=== PATIENT | male | born 1965 | race Caucasian/White ===

== ENCOUNTER 2018-12-16 17:18 | Emergency (ER) | payer SELFPAY ==
[2018-12-16 17:23] VITALS: BP 106/64; PULSE 77; TEMP 97.9; BMI 29.9
--- NOTE | 2018-12-16 18:43 | PDOC ---
History of Present Illness - General Chief Complaint: Ear Problem Stated Complaint: EAR CLOGGED Time Seen by Provider: 12/16/18 17:33 History Source: Patient Exam Limitations: No Limitations Past History - Past Medical History Allergies/Adverse Reactions: Allergies Allergy/AdvReac Type Severity Reaction Status Date / Time No Known Allergies Allergy Verified 12/16/18 17:23 COPD: No - Suicide/Smoking/Psychosocial Hx Smoking History: Never smoked *Physical Exam - Vital Signs Last Vital Signs Temp Pulse Resp BP Pulse Ox 97.9 F 77 18 106/64 98 12/16/18 17:20 12/16/18 17:20 12/16/18 17:20 12/16/18 17:20 12/16/18 17:20 - Physical Exam General Appearance: No: Apparent Distress HEENT: positive: Other (B/L ears with cerumen impaction, no pain on pulling pinna, no mastoid tenderness) Neurologic: positive: Alert, Normal Mood/Affect Medical Decision Making - Medical Decision Making 53 y/o M with no sig pmh presents with L ear clogged for >1 week. Saw doctor last week who tried irrigation which did not help. Was hoping to get wax suctioned out in ED. Has tried Q-tip at home, which made situation worse. Just used Debrox once yesterday. Denies fever, sob, cp, URI sxs, abd pain, n/v. Cerumen impaction Attempted curette but patient feeling uncomfortable with it Advised he needs to use Debrox longer to allow cerumen to soften stable for dc 12/16/18 18:40 *DC/Admit/Observation/Transfer Diagnosis at time of Disposition: Impacted cerumen of both ears - Discharge Dispostion Disposition: HOME Condition at time of disposition: Stable Decision to Admit order: No - Referrals Referrals: Ted Milner MD [Staff Physician] - 2 Days - Patient Instructions Printed Discharge Instructions: DI for Cerumen Impaction Additional Instructions: Thank you for choosing [facility]. It was a pleasure taking care of you. Please continue to use the Debrox as directed for 4 days Avoid use of Q-tip in ears. You were referred to ENT for removal of wax Return to the Emergency Department if your symptoms worsen or persist or have other concerning symptoms. - Post Discharge Activity
== END 2018-12-16 18:49 | disposition home or self-care (01) ==
LOC: JERFT 17:18
PROC: 09C47ZZ Extirpation of Matter from Left External Auditory Canal, Via Natural or Artificial Opening (ICD-10-PCS; principal; 2018-12-16)
PROC: 09C37ZZ Extirpation of Matter from Right External Auditory Canal, Via Natural or Artificial Opening (ICD-10-PCS; 2018-12-16)
DX: H61.23 Impacted cerumen, bilateral (principal)
CPT/HCPCS: 99281-25